=== PATIENT | female | born 1950 | race Caucasian/White ===

== ENCOUNTER 2019-07-27 20:32 | Emergency (ER) | payer MEDICARE, OTHER ==
[~2019-07-27] VITALS: Ht 154.9 cm; Wt 77.6 kg
[2019-07-27 20:32] VITALS: BP_SYST 100
[~2019-07-27 20:32] MED LIST: CLON0.5T12 PO; ESTR0.623 PO; FLUT16SP16 NS; HYDR-3698 PO; HYDR-4100 PO; LEVO100T9 PO; LISI10TA5 PO; ONDA4TAB5 PO; PARO40TA PO; SIMV40TA2 PO; TRAZ-219 PO
--- NOTE | 2019-07-27 20:32 | NUR ---
Pt BIB BLS, placed to ER bed 01. Arrives with ankle splint in place. Pt tripped over at dog bed, fell to the right, injuring right ankle. No deformities noted. +swelling to lateral right ankle. Strong pedal pulse, no loss in sensation, cap refil < 2 sec to nail beds. Unable to move ankle r/t pain.
--- NOTE | 2019-07-27 20:40 | NUR ---
Dr. Bateman at bedside.
--- NOTE | 2019-07-27 21:14 | NUR ---
X-ray at bedside.
[2019-07-27] MEDS ORDERED: HYDROcodone/ACETAMIN 10-325 MG TAB PO ONE (21:15)
--- NOTE | 2019-07-27 22:00 | NUR ---
Resting quietly, no needs verbalized at this time. VSS, NAD.
[2019-07-27 23:40] VITALS: BP_SYST 128
--- NOTE | 2019-07-27 23:40 | NUR ---
Patient given written and verbal discharge instructions and verbalizes understanding. ER MD discussed with patient the results and treatment provided. Patient in stable condition. ID arm band removed. Rx of Ashby given. Patient educated on pain management and to follow up with PMD. Pain Scale 11/03. Opportunity for questions provided and answered. Medication side effect fact sheet provided. Addendum: 07/28/19 at 0010 by ALFONSO Amendment undone in EDM - 07/28/[address] Bateman at bedside.
== END 2019-07-27 23:40 | disposition home or self-care (01) ==
LOC: SED 20:32
DX: S82.831A Other fracture of upper and lower end of right fibula, initial encounter for closed fracture (principal); I10 Essential (primary) hypertension; Z79.899 Other long term (current) drug therapy; X50.1XXA Overexertion from prolonged static or awkward postures, initial encounter; Y93.89 Activity, other specified; Y92.89 Other specified places as the place of occurrence of the external cause; Y99.8 Other external cause status
CPT/HCPCS: 99283

== ENCOUNTER 2023-03-02 00:43 | Emergency (ER) | payer MEDICARE, OTHER ==
[~2023-03-02] VITALS: Ht 154.9 cm; Wt 90.7 kg
[2023-03-02 00:43] VITALS: BP_SYST 158; PULSE 98; RESP 12; TEMP 98; O2SAT 98
[~2023-03-02 00:43] MED LIST changes: -CLON0.5T12 PO; +CLON0.5T4 PO; +HYDR-3927 PO; -HYDR-4100 PO; +LISI10TA29 PO; -LISI10TA5 PO; +PARO-148 PO; -PARO40TA PO; +SIMV-345 PO; -SIMV40TA2 PO; -TRAZ-219 PO; +TRAZ-251 PO
[2023-03-02] MEDS ORDERED: MORPHINE 4 MG INJ. 4 MG/ML VIAL IVP ONE (01:15)
[2023-03-02 01:51] LABS: BASOPHILS % (AUTO) 0.5 % (0.0-2.0); EOSINOPHILS # (AUTO) 0.1 K/uL (0.0-0.4); EOSINOPHILS % (AUTO) 2.1 % (0.0-4.0); HEMATOCRIT 31.5 % (36-48); HEMOGLOBIN 9.8 g/dL (12.0-16.0); LYMPHOCYTES # (AUTO) 2.2 K/uL (1.0-5.5); LYMPHOCYTES % (AUTO) 36.5 % (20.5-51.5); MEAN CORPUSCULAR HEMOGLOBIN 24 pg (27-31); MEAN CORPUSCULAR HGB CONC 31 % (32-36); MEAN CORPUSCULAR VOLUME 76 fL (79.0-98.0); MONOCYTES # (AUTO) 0.6 K/uL (0.0-1.0); MONOCYTES % (AUTO) 9.4 % (1.7-9.3); NEUTROPHILS # (AUTO) 3.1 K/uL (1.8-7.7); NEUTROPHILS % (AUTO) 51.5 % (40.0-70.0); PLATELET COUNT (AUTO) 310 K/uL (130-430); RED BLOOD CELL COUNT(AUTO) 4.14 MIL/uL (4.2-6.2); RED CELL DISTRIBUTION WIDTH 17.5 % (9.0-15.0); WHITE BLOOD COUNT (AUTO) 6.1 K/uL (4.8-10.8)
[2023-03-02 01:54] LABS: ANION GAP 9 (5-15); CALCIUM 7.8 mg/dL (8.4-11.0); CHLORIDE 107 mmol/L (98-107); GLUCOSE 124 mg/dL (74-106); UREA NITROGEN, BLOOD 15 mg/dL (8-21)
[2023-03-02 01:59] LABS: GFR AFRICAN AMERICAN 63 mL/min (>90)
[2023-03-02 02:01] LABS: ALANINE AMINOTRANSFERASE 15 U/L (12-78); ASPARTATE AMINOTRANSFERASE 14 U/L (10-37); LIPASE 77 U/L (73-393); TOTAL BILIRUBIN 0.2 mg/dL (0.0-1.0)
[2023-03-02 04:28] VITALS: BP_SYST 124; PULSE 64; RESP 17; O2SAT 95
== END 2023-03-02 05:20 | disposition admitted as inpatient to this hospital (09) ==
LOC: SED 00:43
DX: R07.2 Precordial pain (principal); M79.602 Pain in left arm; I10 Essential (primary) hypertension; Z85.850 Personal history of malignant neoplasm of thyroid; Z79.899 Other long term (current) drug therapy
CPT/HCPCS: 99285; 96374; 71045; 80053; 83880; 83690; 85025; 84484; 36415; 93005; J2270